=== PATIENT | female | born 1995 | race Caucasian/White ===

== ENCOUNTER 2021-04-30 23:12 | Emergency (ER) | payer OTHER, SELFPAY ==
[2021-04-30 23:19] VITALS: BP 166/96; PULSE 73; RESP 24; TEMP 36.6; O2SAT 100
--- NOTE | 2021-04-30 23:32 | DI.RAD.S_ITS ---
PROCEDURE: XR ACUTE ABDOMEN SERIES INDICATIONS: abdominal pain TECHNIQUE: One view chest and two views of the abdomen were acquired. COMPARISON: None. FINDINGS: Surgical changes and devices: None. Chest: Lungs are clear. Heart size is normal. No pleural effusions. No pneumoperitoneum. Abdomen: Bowel gas pattern is nonobstructive. Significant fecal stasis throughout the colon is seen. No gross pneumoperitoneum. No suspicious calcifications. Visualized solid organ contours appear normal. Bones: No suspicious bony lesions. IMPRESSION: Moderate constipation. No gross free air. No acute cardiopulmonary pathology. Dictated by: Riley Newby M.D. on 04/30/2021 at 23:55 Approved by: Riley Newby M.D. on 04/30/2021 at 23:55
[2021-04-30 23:57] LABS: Add Manual Diff / Slide Review NO; Basophils Absolute Auto 100 /uL (0-100); Basophils Percent Auto 0.8 % (0-2); Eosinophils Absolute Auto 200 /uL (0-450); Eosinophils Percent Auto 3.4 % (2-4); Hematocrit 40.1 % (36-46); Hemoglobin 13.8 g/dL (12.0-16.0); Lymphocytes Absolute Auto 1800 /uL (1100-4500); Lymphocytes Percent Auto 26.7 % (25-40); Mean Corpuscular HGB Conc 34.4 % (30-36); Mean Corpuscular Hemoglobin 29.8 PG (26-34); Mean Corpuscular Volume 86.7 fL (80-100); Monocytes Absolute Auto 400 /uL (0-900); Monocytes Percent Auto 6.3 % (3-14); Neutrophils Absolute Auto 4300 /uL (1500-7000); Neutrophils Percent Auto 62.8 % (50-75); Platelet Count 328 X10^3/uL (150-400); Red Blood Cell Count 4.63 X10^6/uL (4.0-5.2); White Blood Cell Count 6.8 X10^3/uL (4.5-11.0)
[2021-05-01 00:04] LABS: Alanine Aminotransferase 29 IU/L (<35); Albumin 4.6 g/dL (3.5-5.0); Albumin Globulin Ratio 1.5 (1.0-2.8); Alkaline Phosphatase 57 U/L (38-126); Aspartate Aminotransferase 35 IU/L (14-36); BUN Creatinine Ratio 23.9 (6-22); Bilirubin Total 0.3 mg/dL (0.2-1.3); Blood Urea Nitrogen 16 mg/dL (7-17); Calcium 9.5 mg/dL (8.4-10.2); Carbon Dioxide 30 mmol/L (22-32); Chloride 101 mmol/L (98-107); Estimated Glomerular Filt Rate > 60.0 mL/min (>60); Globulin 3.1 g/dL (1.7-4.1); Glucose 98 mg/dL (70-100); HEMOLYSIS < 15 (0-50); Lipase 73 U/L (23-300); Potassium 3.7 mmol/L (3.4-5.1); Sodium 139 mmol/L (137-145); Total Protein 7.7 g/dL (6.3-8.2)
[2021-05-01 01:31] VITALS: BP 103/68; PULSE 66; RESP 14; O2SAT 98
--- NOTE | 2021-05-01 02:49 | ED_ITS ---
HPI - Abdominal Pain General Chief Complaint: Abdominal Pain Stated Complaint: abdominal pain x8 hours Time Seen by Provider: 05/01/21 02:39 Source: patient Mode of arrival: Ambulatory History of Present Illness HPI narrative: Patient is a 25-year-old female with no past medical history presenting today with worsening abdominal pain. She says that she occasionally gets tingling across her stomach for which he takes Tylenol Motrin and Gas-X for. However today it lasted for number of hours almost 8 hrs prompting her to come to the emergency department. Pain seems to move around all of her abdomen. She actually has now had some bowel movements in the ED she feels a little bit better. No fevers or chills. No nausea or vomiting. Pain is not localizing in 1 area. She also says that she has chronic ongoing sacral pain which has been ongoing for about the last 2 months. Related Data Allergies Allergy/AdvReac Type Severity Reaction Status Date / Time No Known Drug Allergies Allergy Verified 04/30/21 23:22 Review of Systems Review of Systems Narrative: GENERAL: Denies chills, fatigue, malaise, fever, sweats, travel HEENT: Denies sinus pain, ear pain, sore throat, difficulty swallowing, neck pain RESPIRATORY: Denies dyspnea, cough, wheezing, hemoptysis, sputum. CARDIOVASCULAR: Denies chest pain, palpitations, orthopnea, edema GASTROINTESTINAL: See HPI : Denies dysuria, frequency, incontinence, hematuria, urinary retention, flank pain. MUSCULOSKELETAL: Denies weakness, joint pain, or bony pain SKIN: No rash, no erythema, no pruritus NEUROLOGIC: Denies weakness, dizziness, headache, numbness, change in speech, confusion PSYCHIATRIC: No concerning psychosocial issues. 12 point review of systems is negative except for those stated above and HPI Patient History Social History Smoking Status: Never smoker Smoking Status: Never smoker Exam Initial Vital Signs Initial Vital Signs: Vital Signs Temperature 97.8 F 04/30/21 23:19 Pulse Rate 73 04/30/21 23:19 Respiratory Rate 24 04/30/21 23:19 Blood Pressure 166/96 H 04/30/21 23:19 Pulse Oximetry 100 04/30/21 23:19 GENERAL: Well-appearing, well-nourished and in no acute distress. CARDIOVASCULAR: Regular rate and rhythm without murmurs, rubs or gallops. RESPIRATORY: Breath sounds equal bilaterally, no wheezes rales or rhonchi. ABDOMEN: Soft, nontender. Normoactive bowel sounds all 4 quadrants. No guarding or rebound. EXTREMITIES: Normal range of motion, no clubbing or edema. Neurovascularly intact NEUROLOGICAL: Alert and oriented x4.Normal gait and speech. SKIN: Warm, dry, no laceration, no petechiae, no rashes or lesions. Course Orders Ordered: ED Orders 04/30/21 23:30 Complete Blood Count AUTO DIFF Stat Comprehensive Metabolic Panel Stat Lipase Stat 04/30/21 23:32 XR acute abdomen series Stat Discontinued Medications Ketorolac Tromethamine (Ketorolac 30 Mg/Ml Vial) 15 mg IV NOW ONE Stop: 05/01/21 03:03 Last Admin: 05/01/21 03:15 Dose: 15 mg Documented by: JUAN Vital Signs Vital signs: Vital Signs - 8 hr 04/30/21 23:19 05/01/21 01:31 05/01/21 03:13 Temperature 97.8 F Pulse Rate 73 66 65 Respiratory Rate 24 14 17 Blood Pressure 166/96 H 103/68 99/63 Pulse Oximetry 100 98 98 MDM - Abdominal Pain Lab Data Result diagrams: 04/30/21 23:30 04/30/21 23:30 Labs: Lab Results 04/30/21 04/30/21 Range/Units 23:30 23:30 WBC 6.8 (4.5-11.0) X10^3/uL RBC 4.63 (4.0-5.2) X10^6/uL Hgb 13.8 (12.0-16.0) g/dL Hct 40.1 (36-46) % MCV 86.7 (80-100) fL MCH 29.8 (26-34) PG MCHC 34.4 (30-36) % RDW 13.0 (11.6-14.8) % Plt Count 328 (150-400) X10^3/uL Neut % (Auto) 62.8 (50-75) % Lymph % (Auto) 26.7 (25-40) % [place] % (Auto) 6.3 (3-14) % Eos % (Auto) 3.4 (2-4) % Baso % (Auto) 0.8 (0-2) % Neut # (Auto) 4300 (6970-5042) /uL Lymph # (Auto) 1800 (4845-4974) /uL [place] # (Auto) 400 (0-900) /uL Eos # (Auto) 200 (0-450) /uL Baso # (Auto) 100 (0-100) /uL Sodium 139 (137-145) mmol/L Potassium 3.7 (3.4-5.1) mmol/L Chloride 101 (98-107) mmol/L Carbon Dioxide 30 (22-32) mmol/L BUN 16 (7-17) mg/dL Creatinine 0.67 (0.52-1.04) mg/dL Estimated GFR > 60.0 (>60) mL/min BUN/Creatinine Ratio 23.9 H (6-22) Glucose 98 (70-100) mg/dL Calcium 9.5 (8.4-10.2) mg/dL Total Bilirubin 0.3 (0.2-1.3) mg/dL AST 35 (14-36) IU/L ALT 29 (<35) IU/L Alkaline Phosphatase 57 (38-126) U/L Total Protein 7.7 (6.3-8.2) g/dL Albumin 4.6 (3.5-5.0) g/dL Globulin 3.1 (1.7-4.1) g/dL Albumin/Globulin Ratio 1.5 (1.0-2.8) Lipase 73 (23-300) U/L Point of care testing: Point of Care Testing Test Results Negative Urine Dip Bedside Urine Glucose Negative Bedside Urine Bilirubin - Negative Bedside Urine Ketone - Negative Urine Specific [place] 1.010 Bedside Urine Occult Blood - Negative Bedside Urine pH 6.0 Bedside Urine Protein - Negative Bedside Urine Urobilinogen - Negative Bedside Urine Nitrite - Negative Bedside Urine Leukocytes - Negative Esterase Imaging Data Abdominal x-ray: Radiologist's Impression: PROCEDURE:? XR ACUTE ABDOMEN SERIES ? INDICATIONS:? abdominal pain ? TECHNIQUE:? One view chest and two views of the abdomen were acquired.? ? COMPARISON:? None. ? FINDINGS:? ? Surgical changes and devices:? None.? ? Chest:? Lungs are clear.? Heart size is normal.? No pleural effusions.? No pneumoperitoneum.? ? Abdomen:? Bowel gas pattern is nonobstructive.? Significant fecal stasis throughout the colon is seen.? No gross pneumoperitoneum.? No suspicious calcifications.? Visualized solid organ contours appear normal.? ? Bones:? No suspicious bony lesions.? ? IMPRESSION:? Moderate constipation.? No gross free air.? No acute cardiopulmonary pathology. ? ? Dictated by: Riley Newby M.D. on 04/30/2021 at 23:55 ? ? MDM Narrative Medical decision making narrative: Patient has numerous bowel movements in the emergency department appeared blood work is overall reassuring. No sign of bowel obstruction. X-ray does show some constipation. At this time recommend high-fiber diet and increased water intake Discharge Plan Departure Patient Disposition: Home Clinical Impression: Constipation Instructions: DI for Constipation Activity Restrictions/Additional Instructions: *You have been diagnosed with constipation *What to do: Increased water intake, increase high-fiber diet as well. Please talk to your primary care doctor about your sacral pain. *Continue to take medications as directed Aojt-[id number] fiber medication take as directed Motrin 600 mg every 6 hours if needed for txna-fj-zgnnasel pain *Follow up with your primary care provider in 2-3 days *Return to ER if you should have pain, persistent vomiting, fever or any new, worsening or concerning symptoms
[2021-05-01 03:13] VITALS: BP 99/63; PULSE 65; RESP 17; O2SAT 98
[2021-05-01] MEDS: KETOROLAC 30 MG/ML VIAL 15 MG IV (03:15)
== END 2021-05-01 03:24 | disposition home or self-care (01) ==
PROVIDERS: Emergency Provider Emergency Medicine
DX: K59.00 Constipation, unspecified (principal)
CPT/HCPCS: 74022; 80053; 81003; 81025; 83690; 85025; 96374; 99283; 99284; J1885

== ENCOUNTER 2021-06-07 17:05 | Emergency (ER) | payer OTHER, SELFPAY ==
[2021-06-07 17:47] VITALS: BP 112/56; PULSE 85; RESP 14; TEMP 36.7; O2SAT 99; BMI 22.3
--- NOTE | 2021-06-07 17:51 | DI.RAD.S_ITS ---
PROCEDURE: XR TOE LT MIN 2V INDICATIONS: toe numbness TECHNIQUE: 3 views of the 3rd toe(s) acquired. COMPARISON: None. FINDINGS: Bones: No fractures or dislocations. No suspicious bony lesions. Soft tissues: No suspicious soft tissue densities. IMPRESSION: Unremarkable 3rd toe radiographs Approved by: Kulwant Cerna M.D. on 06/07/2021 at 17:12
--- NOTE | 2021-06-07 23:40 | ED_ITS ---
HPI - Extremity Injury (Lower) General Chief Complaint: Extremity Injury, Lower Stated Complaint: NUMB LT MIDDLE TOE Time Seen by Provider: 06/07/21 23:23 Source: patient Mode of arrival: Ambulatory History of Present Illness HPI Narrative: Patient is a 25-year-old female who presents with left middle toe that is numb for the last 48 hours. She says back in September she did training, they did a lot of marching she thinks that is the initial insult. since then she has had numbness in her toe off and on. she has been to Dermatology, Rheumatology for the same symptom. She says this is been off and on for some time however the l ast 48 hours if the longest it has been numb. She went on a run 2 days ago she denies any injury. She has not had any fever or chills. Related Data Allergies Allergy/AdvReac Type Severity Reaction Status Date / Time No Known Drug Allergies Allergy Verified 06/07/21 17:47 Review of Systems Review of Systems Narrative: GENERAL: Denies chills,fever HEENT: Denies throat pain RESPIRATORY: Denies dyspnea, cough, wheezing CARDIOVASCULAR: Denies chest pain, palpitations GASTROINTESTINAL: Denies nausea, vomiting MUSCULOSKELETAL: See HPI SKIN: No rash, no laceration, no pruritus NEUROLOGIC: Denies weakness, dizziness, headache, numbness 8 point review of systems is negative except for those stated above and HPI Patient History Social History Smoking Status: Never smoker Smoking Status: Never smoker alcohol intake frequency: holidays/special occasions only Substance Use Type: does not use Exam Initial Vital Signs Initial Vital Signs: Vital Signs Temperature 98.1 F 06/07/21 17:47 Pulse Rate 85 06/07/21 17:47 Respiratory Rate 14 06/07/21 17:47 Blood Pressure 112/56 L 06/07/21 17:47 Pulse Oximetry 99 06/07/21 17:47 GENERAL: Well-appearing, well-nourished and in no acute distress. CARDIOVASCULAR: peripheral pulses in tact, cap refill <2 sec RESPIRATORY: No respiratory distress, speaks in full sentences without di fficulty EXTREMITIES: Normal range of motion, no clubbing or edema. Neurovascularly intact. Left middle toe, no swelling minimal redness no streaking not painful a bony deformity. Distal pedal pulses are felt bilaterally. Feet are slightly cool to touch. NEUROLOGICAL: Cranial nerves II through XII grossly intact. Normal gait and speech. SKIN: Warm, dry, no petechiae, no rashes or lesions. Course Orders Ordered: ED Orders 06/07/21 17:51 XR toe LT min 2V Stat Vital Signs Vital signs: Vital Signs - 8 hr 06/07/21 17:47 Temperature 98.1 F Pulse Rate 85 Respiratory Rate 14 Blood Pressure 112/56 L Pulse Oximetry 99 MDM - Extremity Injury (Lower) Imaging Data Extremity x-ray #1: Radiologist's Impression: PROCEDURE:? XR TOE LT MIN 2V ? INDICATIONS:? toe numbness ? TECHNIQUE:? 3 views of the 3rd toe(s) acquired.? ? COMPARISON:? None. ? FINDINGS:? ? Bones:? No fractures or dislocations.? No suspicious bony lesions.? ? Soft tissues:? No suspicious soft tissue densities.? ? IMPRESSION:? Unremarkable 3rd toe radiographs ? ? ? Approved by: Kulwant Cerna M.D. on 06/07/2021 at 17:12? [facility] Narrative Medical decision making narrative: At this time there is nothing further to do in the emergency department and she can follow-up with her specialists and primary care provider. This is certainly not a sign a stroke or frostbite. Discharge Plan Departure Patient Disposition: Home Clinical Impression: Chronic pain of toe Activity Restrictions/Additional Instructions: *You have been diagnosed with left middle toe pain *What to do: At this time I do not have an explanation of why her toe is numb. Please continue to follow-up with your specialist. *Continue to take medications as directed *Follow up with your primary care provider in 2-3 days or call [phone] *Return to ER if you should have increasing redness, swelling, pain or any new, worsening or concerning symptoms
== END 2021-06-07 23:49 | disposition home or self-care (01) ==
PROVIDERS: Emergency Provider Emergency Medicine
DX: M79.675 Pain in left toe(s) (principal); G89.29 Other chronic pain
CPT/HCPCS: 73660; 99281; 99283

== ENCOUNTER 2021-08-12 21:25 | Emergency (ER) | payer OTHER, SELFPAY ==
[2021-08-12 21:28] VITALS: BP 99/52; PULSE 77; RESP 16; TEMP 36.8; O2SAT 100; BMI 21.6
--- NOTE | 2021-08-12 22:08 | ED.ABDPAIN ---
HPI - Abdominal Pain General Chief Complaint: Abdominal Pain Stated Complaint: Sharp abd/pelvic pain/nausea x7days Time Seen by Provider: 08/12/21 22:08 Source: patient Mode of arrival: Ambulatory Limitations: no limitations History of Present Illness HPI narrative: This is a 25-year-old female comes in with complaint of abdominal pain that is been present for the past week. She has had some nausea and vomiting. She states that sometimes she will have sharp pains it sort of moves that location she describes right upper quadrant sometimes right lower as well as the left upper quadrant. Patient also describes sometimes some lower back pain. She denies fevers or chills. She has been drinking a clear liquid diet but continues to have persistent symptoms. She has had loose stools. She denies black or bloody stools. She denies dysuria urgency or frequency. She denies any vaginal bleeding or discharge. She does not take any daily medications. She denies prior surgeries. No known drug allergies. No tobacco, rare alcohol, no illicit. Patient states she has been seen at the [facility] for this. She does note that flying and pressure changes have seem to make it worse and feels like a sharp poking pain when that occurs. Related Data Previous Rx's Medication Instructions Recorded dicyclomine 10 mg capsule 10 mg PO TID PRN #10 cap 08/12/21 Allergies Allergy/AdvReac Type Severity Reaction Status Date / Time No Known Drug Allergies Allergy Verified 08/12/21 21:38 Review of Systems Review of Systems ROS Unobtainable: All systems reviewed & are unremarkable except as noted in HPI and below Patient History Social History Smoking Status: Never smoker Smoking Status: Never smoker alcohol intake frequency: holidays/special occasions only Substance Use Type: does not use Exam Narrative Exam Narrative: GENERAL: Alert and oriented x three, thin, well-appearing female in mild distress. HEENT: Head normocephalic, atraumatic, EOMI, pupils reactive, face symmetric, moist mucous membranes NECK: Supple, full range of motion CARDIOVASCULAR: Regular rate and rhythm without murmurs, rubs or gallops. RESPIRATORY: Breath sounds equal bilaterally, no wheezes rales or rhonchi. ABDOMEN: Soft, mild generalized tenderness. Nondistended. bowel sounds all 4 quadrants. No guarding or rebound, rigidity, no mass : No CVA tenderness EXTREMITIES: Normal range of motion, no clubbing or edema. Neurovascularly intact NEUROLOGICAL: Cranial nerves II through XII grossly intact. Moving all extremities SKIN: Warm, dry, no petechiae, no rashes or lesions. Initial Vital Signs Initial Vital Signs: Vital Signs Temperature 98.3 F 08/12/21 21:28 Pulse Rate 77 08/12/21 21:28 Respiratory Rate 16 08/12/21 21:28 Blood Pressure 99/52 L 08/12/21 21:28 Pulse Oximetry 100 08/12/21 21:28 Course Orders Ordered: ED Orders 08/12/21 22:15 US abdomen complete Stat 08/12/21 22:35 CBC Auto Diff [Complete Blood Count AUTO DIFF] Stat CMP [Comprehensive Metabolic Panel] Stat Lipase Stat Discontinued Medications Sodium Chloride (Normal Saline 0.9%) 1,000 mls @ 1,000 mls/hr IV BOLUS ONE Stop: 08/12/21 23:17 Last Infusion: 08/12/21 23:28 Dose: 0 mls/hr Documented by: Admin: 08/12/21 22:42 Dose: 1,000 mls/hr Documented by: BLANCA Ketorolac Tromethamine (Ketorolac 30 Mg/Ml Vial) 15 mg IV NOW ONE Stop: 08/12/21 22:19 Last Admin: 08/12/21 22:42 Dose: 15 mg Documented by: BLANCA Reevaluation(s) Reevaluation #1: Patient has had some moderate improvement her symptoms. Not resolved. Discussed her findings today, recommendations for follow-up and return precautions. Time: 23:18 Vital Signs Vital signs: Vital Signs - 8 hr 08/12/21 21:28 08/12/21 23:25 Temperature 98.3 F Pulse Rate 77 55 L Respiratory Rate 16 16 Blood Pressure 99/52 L 99/63 Pulse Oximetry 100 100 MDM - Abdominal Pain Lab Data Result diagrams: 08/12/21 22:35 08/12/21 22:35 Labs: Lab Results 08/12/21 08/12/21 Range/Units 22:35 22:35 WBC 7.5 (4.5-11.0) X10^3/uL RBC 4.33 (4.0-5.2) X10^6/uL Hgb 13.1 (12.0-16.0) g/dL Hct 37.7 (36-46) % MCV 87.1 (80-100) fL MCH 30.3 (26-34) PG MCHC 34.8 (30-36) % RDW 13.3 (11.6-14.8) % Plt Count 284 (150-400) X10^3/uL Neut % (Auto) 60.5 (50-75) % Lymph % (Auto) 25.3 (25-40) % [place] % (Auto) 9.6 (3-14) % Eos % (Auto) 4.1 H (2-4) % Baso % (Auto) 0.5 (0-2) % Neut # (Auto) 4500 (0378-4995) /uL Lymph # (Auto) 1900 (8295-0831) /uL [place] # (Auto) 700 (0-900) /uL Eos # (Auto) 300 (0-450) /uL Baso # (Auto) 0 (0-100) /uL Sodium 137 (137-145) mmol/L Potassium 3.7 (3.4-5.1) mmol/L Chloride 103 (98-107) mmol/L Carbon Dioxide 27 (22-32) mmol/L BUN 18 H (7-17) mg/dL Creatinine 0.73 (0.52-1.04) mg/dL Estimated GFR > 60.0 (>60) mL/min BUN/Creatinine Ratio 24.7 H (6-22) Glucose 87 (70-100) mg/dL Calcium 9.4 (8.4-10.2) mg/dL Total Bilirubin 0.3 (0.2-1.3) mg/dL AST 37 H (14-36) IU/L ALT 43 H (<35) IU/L Alkaline Phosphatase 73 (38-126) U/L Total Protein 7.9 (6.3-8.2) g/dL Albumin 4.8 (3.5-5.0) g/dL Globulin 3.1 (1.7-4.1) g/dL Albumin/Globulin Ratio 1.5 (1.0-2.8) Lipase 92 (23-300) U/L Point of care testing: Point of Care Testing Test Results Negative Urine Dip Bedside Urine Glucose Negative Bedside Urine Bilirubin - Negative Bedside Urine Ketone - Negative Urine Specific [place] 1.01 Bedside Urine Occult Blood - Negative Bedside Urine pH 6 Bedside Urine Protein - Negative Bedside Urine Urobilinogen - Negative Bedside Urine Nitrite - Negative Bedside Urine Leukocytes - Negative Esterase Imaging Data US - abdomen: Radiologist's Impression: [address] [address] Ultrasound Report Signed Patient: Promise Alves MR#: [id number] : 1995 Acct:[id number] Age/Sex: 25 / F Date of Service: 08/12/21 Loc: ED Accession Number: [id number] ?? Procedure: US abdomen complete Ordering Provider: Nina Rivera D.O. PROCEDURE:? US ABDOMEN COMPLETE ? INDICATIONS:? PAIN; N/V/D ? TECHNIQUE:? Real-time scanning was performed of the abdominal and retroperitoneal organs, with image documentation.? ? COMPARISON:? None. ? FINDINGS:? ? Liver:? Liver is normal in size and homogeneous in echotexture.? ? Gallbladder:? Gallbladder is sonographically normal. No gallstones. No gallbladder wall thickening. No pericholecystic fluid. No sonographic Guerra sign. ? Biliary ducts:? Intrahepatic bile ducts are non-dilated.? Extrahepatic bile duct caliber measures 2.5 mm.? Normal is 6-7 mm or less in diameter, or 10 mm or less post-cholecystectomy.? ? Pancreas:? Visualized portions of the pancreas are sonographically normal.? Tail obscured by bowel gas and cannot be evaluated.? ? Spleen:? Spleen is normal in size and homogeneous in echotexture.? ? Kidneys:? Kidneys are normal in size and echotexture.? Right kidney measures 10.5 cm long; left kidney measures 9.8 cm long.? No hydronephrosis or nephrolithiasis.? No solid masses.? ? Aorta:? Visualized aorta is normal in caliber at less than 3 cm.? ? Iliacs:? Proximal common iliac arteries are normal in caliber at less than 2.5 cm.? ? IVC:? Intrahepatic inferior vena cava is patent.? ? Miscellaneous:? No free abdominal fluid.? ? ? IMPRESSION:? Normal abdominal sonogram. ? ? Dictated by: Karen Livingston MD, PhD on 08/12/2021 at 22:41 ? ? Approved by: Karen Livingston MD, PhD on 08/12/2021 at 22:42?? [facility] Narrative Medical decision making narrative: This is a 25-year-old female who comes emergency department a week of nausea and vomiting as well as loose stools. Patient has had abdominal pain that is sort of migrates in its location. Patient's labs showed very slight elevation in her AST/ALT but normal bilirubin normal lipase and BUN is slightly elevated. Abdominal ultrasound does not show any acute changes. Patient's point of care urine and are negative. Patient has had persistent abdominal discomfort that is been migrating with a reassuring abdominal exam. Discussed plan for follow-up for recheck with her primary care. Possibly scope for colonoscopy and/CT imaging in the future if she has persistent symptoms. Discussed with patient can try Bentyl. 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 Discharge Plan Departure Patient Disposition: Home Clinical Impression: Abdominal pain Instructions: DI for Abdominal Pain-Adult Activity Restrictions/Additional Instructions: Follow-up with your primary care physician for recheck. If you continue to have persistent symptoms they may wish to obtain additional or possibly colonoscopy in the future. Your labs showed very mild elevation in your AST at 37 and ALT 43 these are a couple points above normal. Your labs, ultrasound and urine imaging were otherwise normal. You may take Bentyl 1 tablet every 8 hours as needed for abdominal pain. [facility] [place]. Please return for fevers, worsening abdominal pain, back or flank pain, persistent vomiting, passing out, black or bloody stools, difficulty with urination or other new or concerning symptoms. Prescriptions: New dicyclomine 10 mg capsule 10 mg PO TID PRN (Reason: pain) Qty: 10 0RF
--- NOTE | 2021-08-12 22:15 | DI.US.S_ITS ---
PROCEDURE: US ABDOMEN COMPLETE INDICATIONS: PAIN; N/V/D TECHNIQUE: Real-time scanning was performed of the abdominal and retroperitoneal organs, with image documentation. COMPARISON: None. FINDINGS: Liver: Liver is normal in size and homogeneous in echotexture. Gallbladder: Gallbladder is sonographically normal. No gallstones. No gallbladder wall thickening. No pericholecystic fluid. No sonographic Guerra sign. Biliary ducts: Intrahepatic bile ducts are non-dilated. Extrahepatic bile duct caliber measures 2.5 mm. Normal is 6-7 mm or less in diameter, or 10 mm or less post-cholecystectomy. Pancreas: Visualized portions of the pancreas are sonographically normal. Tail obscured by bowel gas and cannot be evaluated. Spleen: Spleen is normal in size and homogeneous in echotexture. Kidneys: Kidneys are normal in size and echotexture. Right kidney measures 10.5 cm long; left kidney measures 9.8 cm long. No hydronephrosis or nephrolithiasis. No solid masses. Aorta: Visualized aorta is normal in caliber at less than 3 cm. Iliacs: Proximal common iliac arteries are normal in caliber at less than 2.5 cm. IVC: Intrahepatic inferior vena cava is patent. Miscellaneous: No free abdominal fluid. IMPRESSION: Normal abdominal sonogram. Dictated by: Karen Livingston MD, PhD on 08/12/2021 at 22:41 Approved by: Karen Livingston MD, PhD on 08/12/2021 at 22:42
[2021-08-12] MEDS: SODIUM CHLORIDE 0.9% 1,000 ML 1000 ML IV (22:42)
[2021-08-12] MEDS: KETOROLAC 30 MG/ML VIAL 15 MG IV (22:42)
[2021-08-12 22:49] LABS: Add Manual Diff / Slide Review NO; Basophils Absolute Auto 0 /uL (0-100); Basophils Percent Auto 0.5 % (0-2); Eosinophils Absolute Auto 300 /uL (0-450); Eosinophils Percent Auto 4.1 % (2-4); Hematocrit 37.7 % (36-46); Hemoglobin 13.1 g/dL (12.0-16.0); Lymphocytes Absolute Auto 1900 /uL (1100-4500); Lymphocytes Percent Auto 25.3 % (25-40); Mean Corpuscular HGB Conc 34.8 % (30-36); Mean Corpuscular Hemoglobin 30.3 PG (26-34); Mean Corpuscular Volume 87.1 fL (80-100); Monocytes Absolute Auto 700 /uL (0-900); Monocytes Percent Auto 9.6 % (3-14); Neutrophils Absolute Auto 4500 /uL (1500-7000); Neutrophils Percent Auto 60.5 % (50-75); Platelet Count 284 X10^3/uL (150-400); Red Blood Cell Count 4.33 X10^6/uL (4.0-5.2); Red Cell Distribution Width 13.3 % (11.6-14.8); White Blood Cell Count 7.5 X10^3/uL (4.5-11.0)
[2021-08-12 22:58] LABS: Alanine Aminotransferase 43 IU/L (<35); Albumin 4.8 g/dL (3.5-5.0); Albumin Globulin Ratio 1.5 (1.0-2.8); Alkaline Phosphatase 73 U/L (38-126); Aspartate Aminotransferase 37 IU/L (14-36); BUN Creatinine Ratio 24.7 (6-22); Bilirubin Total 0.3 mg/dL (0.2-1.3); Blood Urea Nitrogen 18 mg/dL (7-17); Calcium 9.4 mg/dL (8.4-10.2); Carbon Dioxide 27 mmol/L (22-32); Chloride 103 mmol/L (98-107); Estimated Glomerular Filt Rate > 60.0 mL/min (>60); Globulin 3.1 g/dL (1.7-4.1); Glucose 87 mg/dL (70-100); HEMOLYSIS < 15 (0-50); Lipase 92 U/L (23-300); Potassium 3.7 mmol/L (3.4-5.1); Sodium 137 mmol/L (137-145); Total Protein 7.9 g/dL (6.3-8.2)
[2021-08-12 23:25] VITALS: BP 99/63; PULSE 55; RESP 16; O2SAT 100
== END 2021-08-12 23:29 | disposition home or self-care (01) ==
PROVIDERS: Emergency Provider Emergency Medicine
DX: R10.84 Generalized abdominal pain (principal); R11.2 Nausea with vomiting, unspecified
CPT/HCPCS: 36415; 76700; 80053; 81003; 81025; 83690; 85025; 96361; 96374; 99284; J1885

== ENCOUNTER 2021-09-22 17:38 | Emergency (ER) | payer OTHER, SELFPAY ==
[2021-09-22 17:47] VITALS: BP 111/56; PULSE 80; RESP 16; TEMP 36.8; O2SAT 100; BMI 21.1
[2021-09-22 18:27] LABS: Alanine Aminotransferase 28 IU/L (<35); Albumin 5.2 g/dL (3.5-5.0); Albumin Globulin Ratio 1.5 (1.0-2.8); Alkaline Phosphatase 56 U/L (38-126); Aspartate Aminotransferase 37 IU/L (14-36); Bilirubin Total 0.4 mg/dL (0.2-1.3); Blood Urea Nitrogen 13 mg/dL (7-17); Calcium 9.8 mg/dL (8.4-10.2); Carbon Dioxide 32 mmol/L (22-32); Chloride 100 mmol/L (98-107); Estimated Glomerular Filt Rate > 60 mL/min (>60); Globulin 3.4 g/dL (1.7-4.1); Glucose 74 mg/dL (70-100); HEMOLYSIS < 15 (0-50); Lipase 87 U/L (23-300); Potassium 3.7 mmol/L (3.4-5.1); Sodium 141 mmol/L (137-145); Total Protein 8.6 g/dL (6.3-8.2)
[2021-09-22 18:31] LABS: Add Manual Diff / Slide Review NO; Basophils Absolute Auto 100 /uL (0-100); Basophils Percent Auto 1.2 % (0-2); Eosinophils Absolute Auto 100 /uL (0-450); Eosinophils Percent Auto 1.6 % (2-4); Hematocrit 42.1 % (36-46); Hemoglobin 14.5 g/dL (12.0-16.0); Lymphocytes Absolute Auto 1400 /uL (1100-4500); Lymphocytes Percent Auto 19.2 % (25-40); Mean Corpuscular HGB Conc 34.4 % (30-36); Mean Corpuscular Volume 87.3 fL (80-100); Monocytes Absolute Auto 500 /uL (0-900); Monocytes Percent Auto 6.7 % (3-14); Neutrophils Absolute Auto 5100 /uL (1500-7000); Neutrophils Percent Auto 71.3 % (50-75); Platelet Count 343 X10^3/uL (150-400); Red Blood Cell Count 4.82 X10^6/uL (4.0-5.2); Red Cell Distribution Width 13.7 % (11.6-14.8); White Blood Cell Count 7.2 X10^3/uL (4.5-11.0)
--- NOTE | 2021-09-22 19:22 | ED.GENADULT ---
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 Patient has had symptoms similar to this in the past. Has had ultrasounds and workup in the past. Has had colonoscopies in the past all failing to produce any definitive diagnosis. She states that a couple weeks ago she flew to [place] where a physician there diagnosed her with Lyme disease. She stated that this physician took some blood in look that her under a microscope and came up with a diagnosis within minutes where prior physicians were unable to diagnose the symptoms that she was having. 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 She states she is not currently being treated for Lyme disease. She states that she is trying to get the insurance to coordinate/pay for her treatment. No fevers. No headache. No change in bowel habits. No urinary symptoms. No vaginal bleeding. Related Data Previous Rx's Medication Instructions Recorded dicyclomine 10 mg capsule 10 mg PO TID PRN #10 cap 08/12/21 Allergies Allergy/AdvReac Type Severity Reaction Status Date / Time No Known Drug Allergies Allergy Verified 09/22/21 17:54 Review of Systems Constitutional Constitutional: Reports system reviewed and no additional complaints, except as documented Cardiovascular Cardiovascular: Reports system reviewed and no additional complaints, except as documented Respiratory Respiratory: Reports system reviewed and no additional complaints, except as documented Gastrointestinal Gastrointestinal: Reports as per HPI and Reports system reviewed and no additional complaints, except as documented Genitourinary Genitourinary: Reports system reviewed and no additional complaints, except as documented and Reports as per HPI Integumentary/Breasts Skin/Breast: Reports system reviewed and no additional complaints, except as documented Hematologic/Lymphatic On Anticoagulants: No Patient History Medical History Abdominal pain Social History Smoking Status: Never smoker Smoking Status: Never smoker alcohol intake frequency: holidays/special occasions only Substance Use Type: does not use Exam Initial Vital Signs Initial Vital Signs: Vital Signs Temperature 98.3 F 09/22/21 17:47 Pulse Rate 80 09/22/21 17:47 Respiratory Rate 16 09/22/21 17:47 Blood Pressure 111/56 L 09/22/21 17:47 Pulse Oximetry 100 09/22/21 17:47 Const General: cooperative, comfortable and well developed [facility] Head: normal to inspection Resp Effort & Inspection: normal respiratory effort Auscultation: clear to auscultation bilaterally Cardio Rate: regular rate Rhythm: regular rhythm GI Inspection: normal to inspection and non-distended Palpation: soft and tender (Right side abdomen) Skin General: no rashes or lesions noted Neuro General: patient alert, patient awake and moves all extremities Extrem General: normal to inspection and capillary refill normal Psych Appearance: grossly normal and well kempt Course Orders Ordered: ED Orders 09/22/21 18:06 Complete Blood Count AUTO DIFF Stat Comprehensive Metabolic Panel Stat Lipase Stat Discontinued Medications Ketorolac Tromethamine (Ketorolac 30 Mg/Ml Vial) 30 mg IV NOW ONE Stop: 09/22/21 19:23 Last Admin: 09/22/21 19:36 Dose: 30 mg Documented by: CHRISSY Vital Signs Vital signs: Vital Signs - 8 hr 09/22/21 17:47 Temperature 98.3 F Pulse Rate 80 Respiratory Rate 16 Blood Pressure 111/56 L Pulse Oximetry 100 Medical Decision Making Lab Data Lab results reviewed: Yes I reviewed the patient's lab results. Result diagrams: 09/22/21 18:06 09/22/21 18:06 Labs: Lab Results 09/22/21 09/22/21 Range/Units 18:06 18:06 WBC 7.2 (4.5-11.0) X10^3/uL RBC 4.82 (4.0-5.2) X10^6/uL Hgb 14.5 (12.0-16.0) g/dL Hct 42.1 (36-46) % MCV 87.3 (80-100) fL MCH 30.0 (26-34) PG MCHC 34.4 (30-36) % RDW 13.7 (11.6-14.8) % Plt Count 343 (150-400) X10^3/uL Neut % (Auto) 71.3 (50-75) % Lymph % (Auto) 19.2 L (25-40) % [place] % (Auto) 6.7 (3-14) % Eos % (Auto) 1.6 L (2-4) % Baso % (Auto) 1.2 (0-2) % Neut # (Auto) 5100 (2410-6866) /uL Lymph # (Auto) 1400 (1067-5036) /uL [place] # (Auto) 500 (0-900) /uL Eos # (Auto) 100 (0-450) /uL Baso # (Auto) 100 (0-100) /uL Sodium 141 (137-145) mmol/L Potassium 3.7 (3.4-5.1) mmol/L Chloride 100 (98-107) mmol/L Carbon Dioxide 32 (22-32) mmol/L BUN 13 (7-17) mg/dL Creatinine 0.93 (0.52-1.04) mg/dL Estimated GFR > 60 (>60) mL/min BUN/Creatinine Ratio 14.0 (6-22) Glucose 74 (70-100) mg/dL Calcium 9.8 (8.4-10.2) mg/dL Total Bilirubin 0.4 (0.2-1.3) mg/dL AST 37 H (14-36) IU/L ALT 28 (<35) IU/L Alkaline Phosphatase 56 (38-126) U/L Total Protein 8.6 H (6.3-8.2) g/dL Albumin 5.2 H (3.5-5.0) g/dL Globulin 3.4 (1.7-4.1) g/dL Albumin/Globulin Ratio 1.5 (1.0-2.8) Lipase 87 (23-300) U/L Point of Care Testing Test Results Negative Urine Dip Bedside Urine Glucose Negative Bedside Urine Bilirubin - Negative Bedside Urine Ketone - Negative Urine Specific [place] 1.01 Bedside Urine Occult Blood - Negative Bedside Urine pH 7 Bedside Urine Protein - Negative Bedside Urine Urobilinogen - Negative Bedside Urine Nitrite - Negative Bedside Urine Leukocytes - Negative Esterase Point of care testing: Point of Care Testing Test Results Negative Urine Dip Bedside Urine Glucose Negative Bedside Urine Bilirubin - Negative Bedside Urine Ketone - Negative Urine Specific [place] 1.01 Bedside Urine Occult Blood - Negative Bedside Urine pH 7 Bedside Urine Protein - Negative Bedside Urine Urobilinogen - Negative Bedside Urine Nitrite - Negative Bedside Urine Leukocytes - Negative Esterase MDM Narrative Medical decision making narrative: The symptoms that she presents with today are symptoms that she has had in the past. Has had multiple workups in the past include radiologic studies and also lab work. Her lab work today is unremarkable. She has a benign exam. I feel that repeating ultrasounds and CT scans is not in the best interest of the patient is I have low suspicion for an acute surgical pathology given her history and physical. I asked her why she has not been treated for Lyme disease because she states that the provider that diagnosed it [place] provided recommendations but no specific treatment. Her medical department apparently is not treating it as well. I informed her that she needed to talk with her medical department about further evaluation and treatment if needed. She was given return precautions. She expressed understanding and agreement. Discharge Plan Departure Patient Disposition: Home Clinical Impression: Abdominal pain Instructions: DI for Abdominal Pain-Adult Activity Restrictions/Additional Instructions: Continue to take all of your medications as directed and it is important that you follow-up with your medical department to discuss further workup. Return to the emergency department for any new symptoms. Prescriptions: No Action dicyclomine 10 mg capsule 10 mg PO TID PRN (Reason: pain) Qty: 10 0RF
[2021-09-22] MEDS: KETOROLAC 30 MG/ML VIAL IV (19:36)
== END 2021-09-22 20:20 | disposition home or self-care (01) ==
PROVIDERS: Emergency Medicine; Emergency Provider Emergency Medicine
DX: R10.9 Unspecified abdominal pain (principal); A69.20 Lyme disease, unspecified
CPT/HCPCS: 36415; 80053; 81003; 81025; 83690; 85025; 96374; 99284; J1885

== ENCOUNTER 2021-09-23 21:02 | Emergency (ER) | payer OTHER, SELFPAY ==
[2021-09-23 21:10] VITALS: BP 101/61; PULSE 59; RESP 16; TEMP 36.4; O2SAT 98; BMI 21.8
--- NOTE | 2021-09-23 21:39 | DI.RAD.S_ITS ---
PROCEDURE: XR ABDOMEN 1V INDICATIONS: abdominal pain TECHNIQUE: One view of the abdomen acquired. COMPARISON: None. FINDINGS: Surgical changes and devices: None. Bowel: Bowel gas pattern is normal. Soft tissues: No suspicious abdominal calcifications. Visualized solid organ contours appear normal in size. Bones: No suspicious bony lesions. IMPRESSION: Nonspecific, nonobstructive bowel gas pattern with normal quantity of stool present. Dictated by: Rama Goldman M.D. on 09/23/2021 at 22:13 Approved by: Rama Goldman M.D. on 09/23/2021 at 22:14
--- NOTE | 2021-09-23 21:39 | ED.GENADULT ---
HPI - General Adult General Chief complaint: Abdominal Pain Stated complaint: ABD pain Time Seen by Provider: 09/23/21 21:09 Source: patient Mode of arrival: Ambulatory History of Present Illness HPI narrative: Patient is a 25-year-old female who I evaluated in the emergency department yesterday for abdominal discomfort. She has had a very extensive workup to include multiple advanced imaging studies and ultrasounds lab work. She has also been seen by GI without any definitive diagnosis. Yesterday evaluated the patient for abdominal pain. Labs were unremarkable. She had a benign exam. She was discharged home to follow-up. She returns emergency department today stating that she has still continued to have abdominal discomfort. She is having diarrhea. She states it is the same abdominal discomfort that she has had for some time it just is never lasted this long in the past. No vomiting. No urinary symptoms. No vaginal bleeding. No fevers. She was able to tolerate some oral intake today. She is concerned about how long the symptoms have been lasting. Related Data Previous Rx's Medication Instructions Recorded dicyclomine 10 mg capsule 10 mg PO TID PRN #10 cap 08/12/21 hyoscyamine sulfate 0.125 mg 0.125 mg PO BID-QID PRN #14 tab 09/23/21 disintegrating tablet Allergies Allergy/AdvReac Type Severity Reaction Status Date / Time No Known Drug Allergies Allergy Verified 09/23/21 21:12 Review of Systems Constitutional Constitutional: Reports system reviewed and no additional complaints, except as documented Gastrointestinal Gastrointestinal: Reports as per HPI and Reports system reviewed and no additional complaints, except as documented Genitourinary Genitourinary: Reports system reviewed and no additional complaints, except as documented and Reports as per HPI Hematologic/Lymphatic On Anticoagulants: No Patient History Medical History Abdominal pain Social History Smoking Status: Never smoker Smoking Status: Never smoker alcohol intake frequency: holidays/special occasions only Substance Use Type: does not use Exam Initial Vital Signs Initial Vital Signs: Vital Signs Temperature 97.6 F 09/23/21 21:10 Pulse Rate 59 L 09/23/21 21:10 Respiratory Rate 16 09/23/21 21:10 Blood Pressure 101/61 09/23/21 21:10 Pulse Oximetry 98 09/23/21 21:10 [facility] Head: normal to inspection and normocephalic Resp Effort & Inspection: normal respiratory effort GI Inspection: normal to inspection and non-distended Palpation: soft, No firm and No guarding Skin General: no rashes or lesions noted Course Orders Ordered: ED Orders 09/23/21 21:39 XR abdomen 1V Stat 09/23/21 21:42 Complete Blood Count AUTO DIFF Stat Comprehensive Metabolic Panel Stat Lipase Stat Test Serum,Qual Stat Vital Signs Vital signs: Vital Signs - 8 hr 09/23/21 21:10 09/23/21 22:48 Temperature 97.6 F Pulse Rate 59 L 55 L Respiratory Rate 16 18 Blood Pressure 101/61 91/64 Pulse Oximetry 98 100 Medical Decision Making Medical Records Medical records reviewed: Yes I reviewed the patient's medical records. Lab Data Lab results reviewed: Yes I reviewed the patient's lab results. Result diagrams: 09/23/21 21:42 09/23/21 21:42 Labs: Lab Results 09/23/21 09/23/21 09/23/21 Range/Units 21:42 21:42 21:42 WBC 6.3 (4.5-11.0) X10^3/uL RBC 4.19 (4.0-5.2) X10^6/uL Hgb 12.6 (12.0-16.0) g/dL Hct 36.3 (36-46) % MCV 86.5 (80-100) fL MCH 30.0 (26-34) PG MCHC 34.7 (30-36) % RDW 13.4 (11.6-14.8) % Plt Count 310 (150-400) X10^3/uL Neut % (Auto) 61.5 (50-75) % Lymph % (Auto) 26.0 (25-40) % [place] % (Auto) 9.4 (3-14) % Eos % (Auto) 2.1 (2-4) % Baso % (Auto) 1.0 (0-2) % Neut # (Auto) 3900 (4531-5099) /uL Lymph # (Auto) 1600 (4274-7671) /uL [place] # (Auto) 600 (0-900) /uL Eos # (Auto) 100 (0-450) /uL Baso # (Auto) 100 (0-100) /uL Sodium 138 (137-145) mmol/L Potassium 3.7 (3.4-5.1) mmol/L Chloride 100 (98-107) mmol/L Carbon Dioxide 31 (22-32) mmol/L BUN 13 (7-17) mg/dL Creatinine 0.76 (0.52-1.04) mg/dL Estimated GFR > 60 (>60) mL/min BUN/Creatinine Ratio 17.1 (6-22) Glucose 117 H (70-100) mg/dL Calcium 9.3 (8.4-10.2) mg/dL Total Bilirubin 0.6 (0.2-1.3) mg/dL AST 32 (14-36) IU/L ALT 22 (<35) IU/L Alkaline Phosphatase 38 (38-126) U/L Total Protein 7.2 (6.3-8.2) g/dL Albumin 4.3 (3.5-5.0) g/dL Globulin 2.9 (1.7-4.1) g/dL Albumin/Globulin Ratio 1.5 (1.0-2.8) Lipase 63 (23-300) U/L Serum , Qual Negative (Negative) Imaging Data Abdominal x-ray: Radiologist's Impression: [address] [address] XRay Report Signed Patient: Promise Alves MR#: [id number] : 1995 Acct:[id number] Age/Sex: 25 / F Date of Service: 09/23/21 Loc: ED Accession Number: [id number] ?? Procedure: XR abdomen 1V Ordering Provider: Chester Diallo D.O. PROCEDURE:? XR ABDOMEN 1V ? INDICATIONS:? abdominal pain ? TECHNIQUE:? One view of the abdomen acquired.? ? COMPARISON:? None. ? FINDINGS:? ? Surgical changes and devices:? None.? ? Bowel:? Bowel gas pattern is normal.? ? Soft tissues:? No suspicious abdominal calcifications.? Visualized solid organ contours appear normal in size.? ? Bones:? No suspicious bony lesions.? ? IMPRESSION:? Nonspecific, nonobstructive bowel gas pattern with normal quantity of stool present. ? ? Dictated by: Rama Goldman M.D. on 09/23/2021 at 22:13 ? ? Approved by: Rama Goldman M.D. on 09/23/2021 at 22:14?? MDM Narrative Medical decision making narrative: Patient's repeat exam today is unchanged from yesterday. Repeat workup today again shows no acute lab abnormalities and x-ray is unremarkable. I do not feel that ultrasound or CT scan is warranted based on her presentation. Unfortunately I am not sure there is much more that could be offered for her to the emergency department. There is no indication for antibiotics. No indication for surgical consultation. test is negative. Advised the patient that she needs to follow up with her medical department to discuss further outpatient workup. She was given return precautions. Discharge Plan Departure Patient Disposition: Home Clinical Impression: Abdominal pain Instructions: DI for Abdominal Pain-Adult Activity Restrictions/Additional Instructions: Unfortunately unless you develop any new symptoms I am not sure there is much more that can be provided at of the emergency department. I highly recommend that you talk with your medical department about further outpatient workup to include a referral to see Gastroenterology if they feel this is necessary. I recommend that you continue to take all of your medications as directed. Prescriptions: New hyoscyamine sulfate 0.125 mg tablet,disintegrating 0.125 mg PO BID-QID PRN (Reason: dyspepsia) Qty: 14 0RF No Action dicyclomine 10 mg capsule 10 mg PO TID PRN (Reason: pain) Qty: 10 0RF
[2021-09-23 21:53] LABS: Add Manual Diff / Slide Review NO; Basophils Absolute Auto 100 /uL (0-100); Eosinophils Absolute Auto 100 /uL (0-450); Eosinophils Percent Auto 2.1 % (2-4); Hematocrit 36.3 % (36-46); Hemoglobin 12.6 g/dL (12.0-16.0); Lymphocytes Absolute Auto 1600 /uL (1100-4500); Mean Corpuscular HGB Conc 34.7 % (30-36); Mean Corpuscular Volume 86.5 fL (80-100); Monocytes Absolute Auto 600 /uL (0-900); Monocytes Percent Auto 9.4 % (3-14); Neutrophils Absolute Auto 3900 /uL (1500-7000); Neutrophils Percent Auto 61.5 % (50-75); Platelet Count 310 X10^3/uL (150-400); Red Blood Cell Count 4.19 X10^6/uL (4.0-5.2); Red Cell Distribution Width 13.4 % (11.6-14.8); White Blood Cell Count 6.3 X10^3/uL (4.5-11.0)
[2021-09-23 22:03] LABS: Alanine Aminotransferase 22 IU/L (<35); Albumin 4.3 g/dL (3.5-5.0); Albumin Globulin Ratio 1.5 (1.0-2.8); Alkaline Phosphatase 38 U/L (38-126); Aspartate Aminotransferase 32 IU/L (14-36); BUN Creatinine Ratio 17.1 (6-22); Bilirubin Total 0.6 mg/dL (0.2-1.3); Blood Urea Nitrogen 13 mg/dL (7-17); Calcium 9.3 mg/dL (8.4-10.2); Carbon Dioxide 31 mmol/L (22-32); Chloride 100 mmol/L (98-107); Estimated Glomerular Filt Rate > 60 mL/min (>60); Globulin 2.9 g/dL (1.7-4.1); Glucose 117 mg/dL (70-100); HEMOLYSIS 20 (0-50); Lipase 63 U/L (23-300); Potassium 3.7 mmol/L (3.4-5.1); Sodium 138 mmol/L (137-145); Total Protein 7.2 g/dL (6.3-8.2)
[2021-09-23 22:12] LABS: Pregnancy Test Serum,Qual Negative (Negative)
[2021-09-23 22:48] VITALS: BP 91/64; PULSE 55; RESP 18; O2SAT 100
== END 2021-09-23 22:49 | disposition home or self-care (01) ==
PROVIDERS: Emergency Provider Emergency Medicine
DX: R10.9 Unspecified abdominal pain (principal)
CPT/HCPCS: 36415; 74018; 80053; 83690; 84703; 85025; 99283

== ENCOUNTER 2021-10-10 16:36 | Emergency (ER) | payer OTHER, SELFPAY ==
[2021-10-10 16:41] VITALS: BP 103/72; PULSE 78; RESP 16; TEMP 36.9; O2SAT 99; BMI 20.7
--- NOTE | 2021-10-10 16:49 | DI.RAD.S_ITS ---
PROCEDURE: XR HAND RT MIN 3V INDICATIONS: fall TECHNIQUE: 3 views of the hand(s) acquired. COMPARISON: None. FINDINGS: Bones: No fractures or dislocations. Carpal bones are normally aligned. No suspicious bony lesions. Soft tissues: No suspicious soft tissue calcifications. IMPRESSION: No fracture or dislocation. Dictated by: Brady Early M.D. on 10/10/2021 at 16:13 Approved by: Brday Early M.D. on 10/10/2021 at 16:14
[2021-10-10] MEDS: IBUPROFEN 400 MG TABLET 600 MG PO (19:45)
[2021-10-10] MEDS: LIDOCAINE/PRILOCAINE 5 GM TOP (19:45)
[2021-10-10] MEDS: BACITRACIN OINT 0.9 GM PCKT 1 APPLIC TOP (19:45)
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
== END 2021-10-10 20:03 | disposition home or self-care (01) ==
PROVIDERS: Emergency Provider Nurse Practitioner Critical Care Medicine
DX: S60.512A Abrasion of left hand, initial encounter (principal); S60.511A Abrasion of right hand, initial encounter; V19.9XXA Pedal cyclist (driver) (passenger) injured in unspecified traffic accident, initial encounter
CPT/HCPCS: 73130; 99283

== ENCOUNTER 2022-01-02 16:47 | Emergency (ER) | payer OTHER, SELFPAY ==
[2022-01-02 16:52] VITALS: BP 128/59; PULSE 79; RESP 18; TEMP 36.9; O2SAT 99; BMI 22.3
--- NOTE | 2022-01-02 19:43 | ED_ITS ---
HPI - Psych General Chief Complaint: Psychiatric Symptoms Stated Complaint: Panic attack, Numb extremeties Time Seen by Provider: 01/02/22 19:39 Source: patient Mode of arrival: Ambulatory History of Present Illness HPI Narrative: 26-year-old female nonsmoker with history of IBS presents with a chief complaint of numbness, tingling and cramping in her hands and feet as well as numbness around her lips that developed earlier in the day after she became involved in a stressful event at work. She denies any history of significant anxiety or panic attacks but states she is had a very stressful situation at work that has been worsening and today she was triggered and felt palpitations and symptoms as developed above. She states that this seems to have triggered her IBS and she has cramping and nausea but no significant vomiting or diarrhea. Her symptoms have significantly improved prior to her arrival. She denies any chest pain or shortness of breath. She is not dizzy nor weak or lightheaded. She denies any fever or chills. She is in the process of pursuing a separation from the [employer] given her difficulty with accessing health care for her GI diagnosis. Related Data Previous Rx's Medication Instructions Recorded dicyclomine 10 mg capsule 10 mg PO TID PRN pain #10 caps 08/12/21 hyoscyamine sulfate 0.125 mg 0.125 mg PO BID-QID PRN dyspepsia 09/23/21 disintegrating tablet #14 tabs Allergies Allergy/AdvReac Type Severity Reaction Status Date / Time No Known Drug Allergies Allergy Verified 09/23/21 21:12 Review of Systems Review of Systems Narrative: GENERAL: Denies chills, fatigue, malaise, fever, sweats. HEENT: Denies sinus pain, ear pain, sore throat, difficulty swallowing, dizziness. RESPIRATORY: Denies dyspnea, cough, wheezing, hemoptysis, sputum. CARDIOVASCULAR: Denies chest pain, palpitations, orthopnea, edema, GASTROINTESTINAL: See HPI : Denies dysuria, frequency, incontinence, hematuria, urinary retention. MUSCULOSKELETAL: denies weakness, joint pain, or bony pain SKIN: Denies rash, skin lesions, or other NEUROLOGIC: See HPI PSYCHIATRIC: See HPI 12 point review of systems is negative except for those stated above Patient History Medical History Abdominal pain Social History Smoking Status: Never smoker Smoking Status: Never smoker alcohol intake frequency: holidays/special occasions only Substance Use Type: does not use Exam Narrative Exam Narrative: GENERAL: [26] year old patient appears stated age. Well-developed patient. Tearful, visibly upset but in no active distress HEAD: Atraumatic. Normocephalic. EYES: Pupils equal round and reactive. Extraocular motions intact. No scleral icterus. No injection or drainage. ENT: Nose without bleeding, purulent drainage. Throat without erythema, tonsillar hypertrophy or exudate. Airway patent. NECK: Trachea midline. Non tender CARDIOVASCULAR: Regular rate and rhythm without murmurs, gallops, or rubs. RESPIRATORY: Clear to auscultation. Breath sounds equal bilaterally. No wheezes, rales, or rhonchi. GASTROINTESTINAL: Abdomen soft, non-tender, nondistended. EXTREMITIES: No edema or joint tenderness. BACK: Nontender without deformity or crepitance. No flank tenderness. NEURO: AOx3. SKIN: No rash or erythema of visible areas Initial Vital Signs Initial Vital Signs: Vital Signs Temperature 98.4 F 01/02/22 16:52 Pulse Rate 79 01/02/22 16:52 Respiratory Rate 18 01/02/22 16:52 Blood Pressure 128/59 L 01/02/22 16:52 Pulse Oximetry 99 01/02/22 16:52 Oxygen Delivery Method 01/02/22 16:52 Course Orders Ordered: Discontinued Medications Lactated Ringer's (Lactated Ringers) 1,000 mls @ 1,000 mls/hr IV BOLUS ONE Stop: 01/02/22 20:43 Last Infusion: 01/02/22 21:51 Dose: 0 mls/hr Documented By: Admin: 01/02/22 20:00 Dose: 1,000 mls/hr Documented By: [facility] Vital Signs Vital signs: Vital Signs - 8 hr 01/02/22 16:52 Temperature 98.4 F Pulse Rate 79 Respiratory Rate 18 Blood Pressure 128/59 L Pulse Oximetry 99 Oxygen Delivery Method Room Air MDM - Psych Lab Data Result diagrams: 01/02/22 19:55 01/02/22 20:45 Labs: Lab Results 01/02/22 01/02/22 Range/Units 19:55 20:45 WBC 7.0 (4.5-11.0) X10^3/uL RBC 4.64 (4.0-5.2) X10^6/uL Hgb 13.9 (12.0-16.0) g/dL Hct 40.0 (36-46) % MCV 86.2 (80-100) fL MCH 29.9 (26-34) PG MCHC 34.7 (30-36) % RDW 13.3 (11.6-14.8) % Plt Count 298 (150-400) X10^3/uL Neut % (Auto) 68.9 (50-75) % Lymph % (Auto) 22.2 L (25-40) % Faulk % (Auto) 7.2 (3-14) % Eos % (Auto) 1.3 L (2-4) % Baso % (Auto) 0.4 (0-2) % Neut # (Auto) 4800 (9439-5094) /uL Lymph # (Auto) 1500 (2237-2698) /uL Faulk # (Auto) 500 (0-900) /uL Eos # (Auto) 100 (0-450) /uL Baso # (Auto) 0 (0-100) /uL Sodium 138 (137-145) mmol/L Potassium 3.8 (3.4-5.1) mmol/L Chloride 103 (98-107) mmol/L Carbon Dioxide 30 (22-32) mmol/L BUN 14 (7-17) mg/dL Creatinine 0.70 (0.52-1.04) mg/dL Estimated GFR > 60 (>60) mL/min BUN/Creatinine Ratio 20.0 (6-22) Glucose 106 H (70-100) mg/dL Calcium 8.9 (8.4-10.2) mg/dL Magnesium 2.0 (1.6-2.3) mg/dL Total Bilirubin 0.5 (0.2-1.3) mg/dL AST 24 (14-36) IU/L ALT 10 (<35) IU/L Alkaline Phosphatase 41 (38-126) U/L Total Protein 6.7 (6.3-8.2) g/dL Albumin 4.0 (3.5-5.0) g/dL Globulin 2.7 (1.7-4.1) g/dL Albumin/Globulin Ratio 1.5 (1.0-2.8) Lipase 66 (23-300) U/L MDM Narrative Medical decision making narrative: 26-year-old female with numbness, tingling and cramping of her hands and feet as well as perioral numbness is most consistent with an anxiety response due to a stressful trigger at work with resultant carpal pedal spasm. Her symptoms had resolved without any specific intervention, labs are unremarkable. She is in the process of pursuing a separation from the [employer] and has had difficult interactions with superior that seemed to be triggering events. It would seem most reasonable to pursue relocating this patient to a new location to help remove the triggers, help her gain access to care and support structure with family. Discharge Plan Departure Patient Disposition: Home Clinical Impression: Carpopedal spasm Instructions: DI for Irritable Bowel Syndrome Activity Restrictions/Additional Instructions: *You have been diagnosed with [carpal pedal spasm and IBS exacerbation.] *What to do: *Please continue to take your regular medications as directed. [ ] New medication prescriptions sent to your pharmacy: [ ] [ ] New medication written as a paper prescription [ x] No new medications given *Please follow up with your primary care provider in 2-3 days, call for an appointment. Let them know you were seen in the Emergency Department and that we ask that you be seen in follow up. We will electronically transmit a record of today's note if your PCP is in our system * as we discussed, it would seem most reasonable to continue to pursue relocation to gain increased access to specialty care and support from family. Furthermore, removal from a situation that has you in ongoing exposure to your triggers is likely to result in improvement in symptoms and avoidance of recurrence of similar reactions *Return to Emergency Department if you should have any new, worsening or concerning symptoms, such as [fever greater than 101 F, shaking chills, worsenin g pain, persistent vomiting or other bothersome symptoms] Prescriptions: No Action dicyclomine 10 mg capsule 10 mg PO TID PRN (Reason: pain) Qty: 10 0RF hyoscyamine sulfate 0.125 mg tablet,disintegrating 0.125 mg PO BID-QID PRN (Reason: dyspepsia) Qty: 14 0RF Referrals: Sherrell uHnt MD [Primary Care Provider] - Visit Report Forms: Patient Portal/API
[2022-01-02] MEDS: LACTATED RINGERS 1,000 ML 1000 ML IV (20:00)
[2022-01-02 20:14] LABS: Add Manual Diff / Slide Review NO; Basophils Absolute Auto 0 /uL (0-100); Basophils Percent Auto 0.4 % (0-2); Eosinophils Absolute Auto 100 /uL (0-450); Eosinophils Percent Auto 1.3 % (2-4); Hemoglobin 13.9 g/dL (12.0-16.0); Lymphocytes Absolute Auto 1500 /uL (1100-4500); Lymphocytes Percent Auto 22.2 % (25-40); Mean Corpuscular HGB Conc 34.7 % (30-36); Mean Corpuscular Hemoglobin 29.9 PG (26-34); Mean Corpuscular Volume 86.2 fL (80-100); Monocytes Absolute Auto 500 /uL (0-900); Monocytes Percent Auto 7.2 % (3-14); Neutrophils Absolute Auto 4800 /uL (1500-7000); Neutrophils Percent Auto 68.9 % (50-75); Platelet Count 298 X10^3/uL (150-400); Red Blood Cell Count 4.64 X10^6/uL (4.0-5.2); Red Cell Distribution Width 13.3 % (11.6-14.8)
[2022-01-02 21:12] LABS: Alanine Aminotransferase 10 IU/L (<35); Albumin Globulin Ratio 1.5 (1.0-2.8); Alkaline Phosphatase 41 U/L (38-126); Aspartate Aminotransferase 24 IU/L (14-36); Bilirubin Total 0.5 mg/dL (0.2-1.3); Blood Urea Nitrogen 14 mg/dL (7-17); Calcium 8.9 mg/dL (8.4-10.2); Carbon Dioxide 30 mmol/L (22-32); Chloride 103 mmol/L (98-107); Estimated Glomerular Filt Rate > 60 mL/min (>60); Globulin 2.7 g/dL (1.7-4.1); Glucose 106 mg/dL (70-100); HEMOLYSIS < 15 (0-50); Lipase 66 U/L (23-300); Potassium 3.8 mmol/L (3.4-5.1); Sodium 138 mmol/L (137-145); Total Protein 6.7 g/dL (6.3-8.2)
== END 2022-01-02 21:52 | disposition home or self-care (01) ==
PROVIDERS: Emergency Provider Emergency Medicine; PCP Emergency Medicine
DX: R29.0 Tetany (principal); F41.9 Anxiety disorder, unspecified
CPT/HCPCS: 36415; 80053; 83690; 83735; 85025; 96360; 96361; 99284

== ENCOUNTER → 2022-01-13 10:00 | Outpatient (CLI) | payer OTHER, SELFPAY ==
--- NOTE | 2022-01-13 | DI.MRI.S_ITS ---
PROCEDURE: MR ANKLE LT WO CON INDICATIONS: LEFT ANKLE PAIN TECHNIQUE: Noncontrast sagittal T1 spin echo and T2 fast spin echo with fat saturation, axial proton density fast spin echo and T2 fast spin echo with fat saturation, coronal T1 spin echo and T2 fast spin echo with fat saturation through the ankle/hindfoot. COMPARISON: None. FINDINGS: Image quality: Excellent. Bones and joints: No bone marrow contusions or fractures. No hindfoot coalitions. No osteochondral injuries of the talar dome. No pathologic joint effusions. Medial structures: The posterior tibialis, flexor digitorum longus, and flexor hallucis longus tendons are intact. Small amount of fluid distending flexor tendon sheath is seen concerning for low-grade tenosynovitis. The posterior tibial neurovascular bundle appears normal within the tarsal tunnel, without extrinsic mass effect. The deep layer (anterior and posterior tibiotalar ligaments) and superficial layer (tibionavicular, tibiospring, and tibiocalcaneal ligaments) of the deltoid ligament appear normal. The spring ligament components (superomedial calcaneonavicular, medioplantar oblique calcaneonavicular, and inferoplantar longitudinal ligaments) are intact. Lateral structures: The anterior talofibular, calcaneofibular, and posterior talofibular ligaments appear intact. More superiorly, the anterior and posterior tibiofibular ligaments appear intact, as is the intermalleolar ligament. The tibiofibular syndesmosis is normal in width at 2 mm or less. The peroneus longus and brevis tendons are mildly thickened with small amount of fluid distending tendon sheath at the level of mid to distal calcaneus and calcaneocuboid joint. Adjacent bony peroneal tubercle and retrotrochlear prominence are normal in size. The sinus tarsi demonstrates normal fatty signal, without edema, fibrosis, or cyst formation. Visualized sinus tarsi components (cervical ligament, interosseous talocalcaneal ligament, roots of the inferior extensor retinaculum) appear normal. The calcaneonavicular and calcaneocuboid components of the bifurcate ligament appear intact. The dorsal calcaneocuboid ligament appears intact. Anterior structures: The tibialis anterior, extensor hallucis longus, and extensor digitorum longus tendons appear intact. The dorsal talonavicular ligament appears intact. Posterior and plantar structures: Achilles tendon is intact. Medial and lateral bands of the plantar fascia are of normal thickness. No abductor digiti quinti muscle atrophy to suggest Charles neuropathy. IMPRESSION: 1. No marrow edema. No fracture or dislocation. No evidence of osteochondral injuries of talar dome. 2. Low-grade tenosynovitis involving flexor tendons. Low-grade tendinosis and Teno vitas involving peroneus tendons as above. No full-thickness ankle tendon rupture. 3. Medial and lateral ankle ligaments are intact. Dictated by: Riley Newby M.D. on 01/14/2022 at 9:59 Approved by: Riley Newby M.D. on 01/14/2022 at 10:16
== END ==
PROVIDERS: PCP Emergency Medicine; Visit Provider Podiatrist
DX: M76.822 Posterior tibial tendinitis, left leg (principal); M65.872 Other synovitis and tenosynovitis, left ankle and foot; M79.672 Pain in left foot
CPT/HCPCS: 73721